=== PATIENT | female | born 1950 | race Caucasian/White ===

== ENCOUNTER 2019-05-24 13:57 | Day surgery (SDC) | payer OTHER ==
[~2019-05-24] VITALS: Ht 157.5 cm; Wt 55.8 kg
[~2019-05-24 13:57] MED LIST: CEPH500 PO; Ultram50 MG PO; Zofran Odt4 MG SL
[2019-05-24] MEDS ORDERED: Aspir 8181 MG PO (15:02)
== END 2019-05-24 17:56 | disposition home or self-care (01) ==
LOC: ORSCSDS 13:57
PROVIDERS: Surgery
PROC: 0DBN8ZX Excision of Sigmoid Colon, Via Natural or Artificial Opening Endoscopic, Diagnostic (ICD-10-PCS; principal; 2019-05-24 15:15)
DX: R19.5 Other fecal abnormalities (principal); K63.5 Polyp of colon; Z87.891 Personal history of nicotine dependence; Z79.82 Long term (current) use of aspirin
CPT/HCPCS: 88305; J2704; J7120

== ENCOUNTER → 2023-05-11 | Outpatient (CLI) | payer OTHER ==
[~2023-05-11] MED LIST changes: +Aspir 8181 MG PO
== END | disposition home or self-care (01) ==
LOC: LAB SHORT 10:46 → LAB 10:46
DX: R30.0 Dysuria (principal)
CPT/HCPCS: 87086